=== PATIENT | male | born 1980 | race Caucasian/White ===

== ENCOUNTER 2018-08-22 19:26 | Emergency (ER) | payer SELFPAY ==
--- NOTE | 2018-08-22 19:27 | ED Physician Documentation ---
General Adult - HISTORIAN Historian: patient - HPI Stated Complaint: swollen right side of face Chief Complaint: Dental Pain Onset: other (2 weeks ) Timing: still present Severity: mild Further Comments: yes (He states over two weeks ago he started to note increased swelling and pain in his right jaw dental area. He states he has taken OTC meds for pain with no relief . He knows he has dental issues . He does have an appt with dentist next week. He started running a fever on way here) Last known Well Code/Unknown Code: Unknown - ROS CONST: fever EYES/ENT: none CVS/RESP: none GI/: none MS/SKIN/LYMPH: none NEURO/PSYCH: denies: headache, fainting, dizziness, tingling - PAST HX Past History: none Other History: none Surgeries/Procedures: none Immunizations: UTD Allergies/Adverse Reactions: Allergies Allergy/AdvReac Type Severity Reaction Status Date / Time No Known Allergies Allergy Verified 08/22/18 19:57 Home Medications: Ambulatory Orders Medication Instructions Recorded NK 08/22/18 - SOCIAL HX Smoking History: cigarettes Alcohol Use: none Drug Use: none - FAMILY HX Family History: No - REVIEWED ASSESSMENTS Nursing Assessment Reviewed: Yes Vitals Reviewed: Yes Progress - Progress Progress: 2045: results discussed. Plan. He is aware. Call Dentist in AM for earlier appt. Return to ER or PCP for no improvement DG ED Results Lab/Radiology - Radiology Radiology Impressions: HISTORY Facial swelling. TECHNIQUE Images through the facial bones were obtained. Multiplanar reconstructions were performed. FINDINGS There is no fracture or abnormal bone production or destruction. The mandible, zygomatic arches and pterygoid plates are normal. Mucous retention cysts are noted in the maxillary sinuses. Paranasal sinuses are otherwise well developed and aerated. Ostiomeatal complexes are normal. Nasal septum is midline. Orbits and globes are normal. There is significant swelling in the right mandibular region. There is periodontal disease and tooth decay at #30. There is extensive decay at #19. There is no abnormal fluid collection to suggest the presence of an abscess. Enlarged cervical lymph nodes are present. IMPRESSION Right facial swelling and cellulitis. Significant bilateral cervical adenopathy. Tooth decay. Electronically signed on Aug 22, 2018 8:41:20 PM ELEVATOR DISPATCHER by: Jacob Loza General Adult Physical Exam - PHYSICAL EXAM GENERAL APPEARANCE: no distress EENT: eye inspection normal, ENT inspection normal, pharynx normal, no signs of dehydration NECK: other (mild swelling on right jaw line. Warm to touch and red. approx 2 cm raised area ) RESPIRATORY: no resp distress, chest non-tender, breath sounds normal CVS: reg rate & rhythm, heart sounds normal ABDOMEN: soft, normal bowel sounds, no distension BACK: normal inspection SKIN: warm/dry, normal color EXTREMITIES: non-tender, normal range of motion, no evidence of injury, no edema NEURO: oriented X3 Discharge Clincal Impression: Dental abscess Referrals: Primary Doctor,No [Primary Care Provider] - 2 Days Comments: 1. Bactrim DS take 1 by mouth twice daily x 10 days 2. Ibuprofen 800 mg take 1 by mouth every 12 hours as needed for pain 3. Call dentist in AM and get in sooner 4. See PCP in 2-4 days 5. Return to ER for any concerns Condition: Stable Disposition: 01 HOME, SELF-CARE Decision to Admit: NO Date of Decison to Admit: 08/22/18 Decision Time: 20:49
[2018-08-22] MEDS ORDERED: 0.9 % SODIUM CHLORIDE 500 ML IV ONE (19:43)
[2018-08-22] MEDS ORDERED: 0.9 % SODIUM CHLORIDE 1,000 ML IV ONE (19:58)
[2018-08-22] MEDS ORDERED: fentaNYL CITRATE/PF 100 MCG/ 2ML AMP IVP ONE ×2 (20:24→20:45)
[2018-08-22 20:34] LABS: MEAN CORPUSCULAR HEMOGLOBIN 30.3 pg (28.0-34.0)
[2018-08-22 20:35] LABS: BASOPHILS % 0.8 (0.0-1.5); EOSINOPHILS % 1.1 % (0.0-6.8); MONOCYTES % 7.3 % (0.0-11.0); NEUTROPHILS # 13.9 # k/uL (1.4-7.7)
[2018-08-22 20:36] LABS: eGFR (Non-African) > 60
[2018-08-22] MEDS ORDERED: methylPREDNISolone SOD SUCC 125 MG/2 ML VIAL IVP ONE (20:42)
[2018-08-22] MEDS ORDERED: SULFAMETHOXAZOLE/TRIMETHOPRIM 1 EACH TABLET PO ONE (20:43)
[2018-08-22 21:20] VITALS: BP 156/105
--- NOTE | 2018-08-23 05:53 | Diagnostic Imaging Report ---
LORETTA ASTUDILLO [facility] [address] [facility] [address] [place], [place]. [address] Report Submission Date: Aug 22, 2018 8:41:20 PM MECHANICAL SERVICE REPRESENTATIVE Patient Study Name: DANY HARRISON Date: Aug 22, 2018 8:09:28 PM MECHANICAL SERVICE REPRESENTATIVE Modality Type: CT\SR Gender: M Description: CT MAXILLOFACIAL W/O D : 80 Institution: [facility] Physician: LORETTA ASTUDILLO CT facial bones HISTORY Facial swelling. TECHNIQUE Images through the facial bones were obtained. Multiplanar reconstructions were performed. FINDINGS There is no fracture or abnormal bone production or destruction. The mandible, zygomatic arches and pterygoid plates are normal. Mucous retention cysts are noted in the maxillary sinuses. Paranasal sinuses are otherwise well developed and aerated. Ostiomeatal complexes are normal. Nasal septum is midline. Orbits and globes are normal. There is significant swelling in the right mandibular region. There is periodontal disease and tooth decay at #30. There is extensive decay at #19. There is no abnormal fluid collection to suggest the presence of an abscess. Enlarged cervical lymph nodes are present. IMPRESSION Right facial swelling and cellulitis. Significant bilateral cervical adenopathy. Tooth decay. Electronically signed on Aug 22, 2018 8:41:20 PM MECHANICAL SERVICE REPRESENTATIVE by: Jacob RODRÍGUEZ
== END 2018-08-22 21:15 | disposition home or self-care (01) ==
LOC: ED 19:26
DX: K04.7 Periapical abscess without sinus (principal); F17.200 Nicotine dependence, unspecified, uncomplicated
CPT/HCPCS: 36415; 70486; 80053; 85025; 87040; 96365; 96374; 96375; 99283; 99284; J2930; J3010; A9270; J7030; S1016